=== PATIENT | female | born 1950 ===

== ENCOUNTER 2021-09-06 16:20 | Inpatient (IN) | payer MEDICARE, BC ==
[~2021-09-06] VITALS: Ht 160 cm; Wt 51.3 kg
--- NOTE | 2021-09-06 16:30 | NUR ---
Pt triaged and is waiting in the hallway in the private ambulance [facility] because there are no ER beds available at this time.
[2021-09-06] MEDS ORDERED: DIVA500T4 PO (16:36)
[2021-09-06] MEDS ORDERED: ATOR20TA PO (16:36)
[2021-09-06] MEDS ORDERED: THIA100T13 PO (16:36)
[2021-09-06] MEDS ORDERED: LACO200T2 PO (16:36)
[2021-09-06] MEDS ORDERED: FOLI1TAB94 PO (16:36)
[2021-09-06] MEDS ORDERED: QUET100T PO (16:36)
--- NOTE | 2021-09-06 17:00 | NUR ---
Pt was seen by . Pt remains in the hallway in the EMT gurney as there are still no ER beds available and no extra gurney to transfer pt into.
--- NOTE | 2021-09-06 17:40 | NUR ---
stated pt is medically clear, SBAR report given to [facility] via telephone.
--- NOTE | 2021-09-06 17:55 | NUR ---
Gps/Foreign Languages Department Chair- Received report from Christine SULTANA RN.
--- NOTE | 2021-09-06 17:55 | NUR ---
Pt trans to [facility] by EMT's in their own gurney.
--- NOTE | 2021-09-06 18:05 | NUR ---
Gps/Tin Can Laborer- Received patient via troy , alert, in no sign of any distress, noted word finding difficulty, left side weakness. . Patient wants to eat dinner at this time, brought foods from ER. Will attempt to get information as soon as she's done with her dinner.
[2021-09-06] MEDS ORDERED: ACETAMINOPHEN 325 MG TABLET PO PRN (19:15)
[2021-09-06] MEDS ORDERED: MAGNESIUM HYDROXIDE 30 ML LIQUID UDC PO PRN (19:15)
[2021-09-06] MEDS ORDERED: MAG HYDROX/AL HYDROX/SIMETH 30 ML LIQUID UDC PO PRN (19:15)
[2021-09-06 19:57] VITALS: BP 135/81
[2021-09-06] MEDS: ZOLPIDEM 5 MG TABLET PO PRN (20:41)
[2021-09-06] MEDS ORDERED: QUETIAPINE FUMARATE 100 MG TABLET PO SCH (21:00)
[2021-09-06] MEDS: LACOSAMIDE 50 MG TABLET PO SCH (21:16)
[2021-09-06] MEDS: ATORVASTATIN 20 MG TABLET PO SCH (21:16)
[2021-09-06] MEDS: DIVALPROEX ER 500 MG TAB.SR.24H PO SCH (21:16)
[2021-09-06] MEDS: LORAZEPAM 1 MG TABLET PO PRN (23:07)
--- NOTE | 2021-09-06 23:15 | NUR ---
GPS: Admitted to unit earlier a 71 yr.old female under the care of /Dr. Mccoy in fair condition. Pt.is on a 72 hour hold for DTS/GD. Pt.is AOx3 but forgetful at times. Has expressive aphasia,seizure disorder,Htn,and Hx of ICP. Personal belongings list/body check done by previous nurse. Pt's advisement/pt's rights handbook given. Pt.is cooperative during admission process. Denies wanting to harm self. Seizure precautions initiated. Unit rules explained. Safe environment provided. Will continue to monitor.
--- NOTE | 2021-09-07 06:08 | NUR ---
GPS: Pt.slept 6.45 and currently is still asleep during rounds. Safe environment provided. Will continue to monitor.
[2021-09-07 07:30] VITALS: BP 96/57
[2021-09-07] MEDS: THIAMINE HCL 100 MG TABLET PO SCH (08:31)
[2021-09-07] MEDS: FOLIC ACID 1 MG TABLET PO SCH (08:31)
[2021-09-07] MEDS: DIVALPROEX ER 500 MG TAB.SR.24H PO SCH ×2 (08:31→20:28)
[2021-09-07] MEDS: VENLAFAXINE XR 37.5 MG CAP.SR.24H PO SCH (10:45)
--- NOTE | 2021-09-07 10:53 | NUR ---
Clinical Social Work Note SW contacted and left patient's son Rk Rodgers [phone] a voicemail, to discuss treatment planning.
--- NOTE | 2021-09-07 10:55 | NUR ---
Firearms Report: Fabrics And Material Cutter completed and submitted a [employer] firearms report for 5150 grave disability certifications. A copy of report has been placed in patient chart.
--- NOTE | 2021-09-07 11:13 | NUR ---
Initial Discharge Plan Patient currently resides at home with her son at [address] [facility], [place], [address]. Patient stated that she would like to return to the care of her son. SW will contact son to ensure proper discharge plan. SW will continue to work with patient, family, and MD to ensure a safe and proper discharge plan.
[2021-09-07] MEDS: LACOSAMIDE 50 MG TABLET PO SCH ×2 (11:37→20:28)
[2021-09-07 16:41] VITALS: BP 102/60
--- NOTE | 2021-09-07 17:17 | NUR ---
Gps/Pumper Gauger- Tried to get hold of his son Vern, unable, left message .Had been in and out of the activity room, cooperative, min. interactions with her roommate
[2021-09-07 20:00] VITALS: BP 122/69
[2021-09-07] MEDS: QUETIAPINE FUMARATE 100 MG TABLET PO SCH (20:28)
[2021-09-07] MEDS: ATORVASTATIN 20 MG TABLET PO SCH (20:28)
[2021-09-07] MEDS: LORAZEPAM 1 MG TABLET PO PRN (21:41)
--- NOTE | 2021-09-08 06:45 | NUR ---
GPS: Pt.slept 8.15 last night. Denies SI. Re-assured prn. Safe environment/seizure precautions observed. Will continue to monitor.
[2021-09-08 08:24] VITALS: BP 104/70
[2021-09-08 08:31] LABS: CREATININE 0.6 mg/dL (0.6-1.3); POTASSIUM 4.5 mmol/L (3.5-5.1)
[2021-09-08] MEDS: DIVALPROEX ER 500 MG TAB.SR.24H PO SCH ×2 (09:05→20:09)
[2021-09-08] MEDS: FOLIC ACID 1 MG TABLET PO SCH (09:05)
[2021-09-08] MEDS: LACOSAMIDE 50 MG TABLET PO SCH ×2 (09:05→20:09)
[2021-09-08] MEDS: THIAMINE HCL 100 MG TABLET PO SCH (09:05)
[2021-09-08] MEDS: VENLAFAXINE XR 37.5 MG CAP.SR.24H PO SCH (09:06)
--- NOTE | 2021-09-08 13:23 | NUR ---
GPS: Nursing Notes: Destructive Behavior to Self: Patient is awake and responding to her name, isolative and withdrawn in her room, depressed mood and anxious affect, low energy level, unkempt appearance, compliant with her medications, eating well, but refusing to participate in therapeutic groups, laying down on her bed with her head cover with the blanket, verbally ousmane for safety, denies SI/HI, unable to formulate a viable plan for self care, continue to monitor for safety, continue with treatment plan.
[2021-09-08 16:44] VITALS: BP 106/62
[2021-09-08 20:00] VITALS: BP 104/64
[2021-09-08] MEDS: QUETIAPINE FUMARATE 100 MG TABLET PO SCH (20:09)
[2021-09-08] MEDS: ATORVASTATIN 20 MG TABLET PO SCH (20:09)
[2021-09-08] MEDS: ZOLPIDEM 5 MG TABLET PO PRN (22:47)
--- NOTE | 2021-09-09 02:38 | NUR ---
Received patient in her bed at the start of the shift. Patient was encouraged to come to the day room for a snack and to watch some TV. The patient complied and stayed out of her room for over a hour. This automobile service writer had difficulty communicating with the patient d/t the patients expressive aphasia. The patient seems to understand simple concepts but struggles to get her point across at times. This automobile service writer sent patient for a CT scan that was ordered, and assisted her to her room afterwords. Safety stratiges are in place, continuing with plan of care.
[2021-09-09 07:30] VITALS: BP 119/64
[2021-09-09] MEDS: THIAMINE HCL 100 MG TABLET PO SCH (09:49)
[2021-09-09] MEDS: LACOSAMIDE 50 MG TABLET PO SCH ×2 (09:49→21:49)
[2021-09-09] MEDS: VENLAFAXINE XR 37.5 MG CAP.SR.24H PO SCH (09:49)
[2021-09-09] MEDS: FOLIC ACID 1 MG TABLET PO SCH (09:49)
[2021-09-09] MEDS: DIVALPROEX ER 500 MG TAB.SR.24H PO SCH ×2 (09:49→21:50)
[2021-09-09 15:56] VITALS: BP 98/57
--- NOTE | 2021-09-09 17:45 | NUR ---
GPS: Nursing Notes: Destructive Behavior to Self: Patient is awake and responding to her name, isolative and withdrawn in her room, depressed mood and anxious affect, unkempt appearance, low energy level, forgetful, refusing to participate in therapeutic groups, laying down on her bed with her head cover with a blanket, stated "Leave alone.. I want to sleep..", unable to formulate a viable plan for self care, continue to monitor for safety, continue with treatment plan.
[2021-09-09 20:08] VITALS: BP 104/59
[2021-09-09] MEDS: QUETIAPINE FUMARATE 100 MG TABLET PO SCH (21:50)
[2021-09-09] MEDS: ATORVASTATIN 20 MG TABLET PO SCH (21:50)
[2021-09-09] MEDS: ZOLPIDEM 5 MG TABLET PO PRN (21:50)
[2021-09-09] MEDS: LORAZEPAM 1 MG TABLET PO PRN (22:52)
--- NOTE | 2021-09-10 06:22 | NUR ---
Received Pt in her room awake and reading a magazine. Pt was friendly on approach, but became guarded when the subject of her hospitalization came up, then she stated, "Let's talk about something else" and changed the subject. Pt gave no disclosure regarding the details of her admission. Pt was willing to engage in superficial conversation, and exhibited a bright affect. Pt denies any current suicidal thoughts, plans, or intent and verbally contracts for safety. Ativan administered for anxiety with good effect. Denied pain, VS stable.
[2021-09-10 08:16] VITALS: BP 98/58
[2021-09-10] MEDS: DIVALPROEX ER 500 MG TAB.SR.24H PO SCH ×2 (08:21→20:02)
[2021-09-10] MEDS: FOLIC ACID 1 MG TABLET PO SCH (08:21)
[2021-09-10] MEDS: THIAMINE HCL 100 MG TABLET PO SCH (08:21)
[2021-09-10] MEDS: VENLAFAXINE XR 37.5 MG CAP.SR.24H PO SCH (08:21)
[2021-09-10] MEDS: LACOSAMIDE 50 MG TABLET PO SCH ×2 (08:22→20:03)
--- NOTE | 2021-09-10 12:22 | NUR ---
GPS: Nursing Notes: Courtesy Call for Neurology Consultation: Per Dr. Gallegos request, called Dr. Neal for neurology consultation, Dr. Neal would see the patient today or tomorrow, continue to monitor for safety, continue with treatment plan.
[2021-09-10 16:21] VITALS: BP 104/59
[2021-09-10 19:59] VITALS: BP 111/54
[2021-09-10] MEDS: QUETIAPINE FUMARATE 100 MG TABLET PO SCH (20:02)
[2021-09-10] MEDS: ATORVASTATIN 20 MG TABLET PO SCH (20:03)
[2021-09-10] MEDS: ZOLPIDEM 5 MG TABLET PO PRN (21:51)
--- NOTE | 2021-09-11 07:13 | NUR ---
GPS: Pt.slept for 7 hrs last night. No new behavioral problems exhibited. Seizure precautions observed. Denies SI. Will continue to monitor.
[2021-09-11 07:30] VITALS: BP 110/64
[2021-09-11] MEDS: FOLIC ACID 1 MG TABLET PO SCH (08:22)
[2021-09-11] MEDS: THIAMINE HCL 100 MG TABLET PO SCH (08:22)
[2021-09-11] MEDS: VENLAFAXINE XR 37.5 MG CAP.SR.24H PO SCH (08:22)
[2021-09-11] MEDS: DIVALPROEX ER 500 MG TAB.SR.24H PO SCH ×2 (08:22→20:09)
[2021-09-11] MEDS: LACOSAMIDE 50 MG TABLET PO SCH ×2 (08:22→20:10)
--- NOTE | 2021-09-11 12:11 | NUR ---
[facility] Hearing: Patient had 5250 probable cause hearing today and it was upheld for grave disability.
--- NOTE | 2021-09-11 12:18 | NUR ---
GPS: Nursing Notes: Destructive Behavior to Self: Patient is awake and responding to her name, isolative and withdrawn in her room, refusing to participate in therapeutic groups, laying down on her bed, depressed mood and blunted affect, when she gets anxious, patient unable to speak clear, rambling speech, unable to formulate a viable plan for self care, continue to monitor for safety, continue with treatment plan.
[2021-09-11 16:15] VITALS: BP 101/60
[2021-09-11] MEDS: ASPIRIN EC 81 MG TABLET.DR PO SCH (16:41)
[2021-09-11] MEDS: QUETIAPINE FUMARATE 100 MG TABLET PO SCH (20:09)
[2021-09-11] MEDS: ATORVASTATIN 20 MG TABLET PO SCH (20:09)
[2021-09-11] MEDS: ZOLPIDEM 5 MG TABLET PO PRN (22:08)
[2021-09-11 23:04] VITALS: BP 111/71
[2021-09-12 07:30] VITALS: BP 118/67
[2021-09-12] MEDS ORDERED: ASPIRIN EC 81 MG TABLET.DR PO SCH (09:00)
[2021-09-12] MEDS: LACOSAMIDE 50 MG TABLET PO SCH ×2 (09:00→20:21)
[2021-09-12] MEDS: VENLAFAXINE XR 37.5 MG CAP.SR.24H PO SCH (09:00)
[2021-09-12] MEDS: DIVALPROEX ER 500 MG TAB.SR.24H PO SCH ×2 (09:00→20:21)
[2021-09-12] MEDS: FOLIC ACID 1 MG TABLET PO SCH (09:00)
[2021-09-12] MEDS: THIAMINE HCL 100 MG TABLET PO SCH (09:01)
[2021-09-12] MEDS: ASPIRIN EC 81 MG TABLET.DR PO SCH (09:01)
--- NOTE | 2021-09-12 10:16 | NUR ---
SW Family Contact: SW left a voicemail for patient's son Vern ([phone]) and informed of discharge plan for Friday and to call this SW back with a scrap picker time.
[2021-09-12 16:00] VITALS: BP 121/77
[2021-09-12 20:07] VITALS: BP 127/72
[2021-09-12] MEDS: QUETIAPINE FUMARATE 100 MG TABLET PO SCH (20:21)
[2021-09-12] MEDS: ATORVASTATIN 20 MG TABLET PO SCH (20:21)
[2021-09-12] MEDS: ZOLPIDEM 5 MG TABLET PO PRN (22:04)
--- NOTE | 2021-09-13 04:59 | NUR ---
Pt slept intermittently throughout the night with aid of sleeping Ambien. Denies SI or HI. Pt has rambling speech pattern but able to be redirected. No acute distress or agitation noted throughout the shift.
[2021-09-13 07:30] VITALS: BP 108/69
--- NOTE | 2021-09-13 08:06 | NUR ---
[facility] Family Contact: SW left a voicemail for patient's son Vern ([phone]) and requested call back to discuss discharge plan for Friday and confirm pick-up time.
[2021-09-13] MEDS: LACOSAMIDE 50 MG TABLET PO SCH ×2 (08:50→20:11)
[2021-09-13] MEDS: VENLAFAXINE XR 37.5 MG CAP.SR.24H PO SCH (08:51)
[2021-09-13] MEDS: ASPIRIN EC 81 MG TABLET.DR PO SCH (08:51)
[2021-09-13] MEDS: DIVALPROEX ER 500 MG TAB.SR.24H PO SCH ×2 (08:51→20:11)
[2021-09-13] MEDS: FOLIC ACID 1 MG TABLET PO SCH (08:51)
[2021-09-13] MEDS: THIAMINE HCL 100 MG TABLET PO SCH (08:51)
[2021-09-13 16:00] VITALS: BP 118/72
--- NOTE | 2021-09-13 18:31 | NUR ---
GPS: PT ALERT AND VERBALLY RESPONSIVE. DENIES PAIN OR DISCOMFORT. COOPERATIVE WITH CARE AND COMPLIANT WITH MEDICATIONS. PT INFORMED THAT SHE WILL BE DISCHARGED TOMORROW AND SON WILL PICK HER UP AROUND 11-12PM. PT EXCITED TO GO HOME. NO AGITATION NOTED. DENIES ANY SUICIDAL OR HOMICIDAL IDEATION. IN CONGRUENT AFFECT. ABLE TO MAKE NEEDS KNOWN.
[2021-09-13] MEDS: QUETIAPINE FUMARATE 100 MG TABLET PO SCH (20:09)
[2021-09-13] MEDS: ATORVASTATIN 20 MG TABLET PO SCH (20:09)
[2021-09-13] MEDS: ZOLPIDEM 5 MG TABLET PO PRN (20:11)
[2021-09-13 20:16] VITALS: BP 129/73
--- NOTE | 2021-09-13 20:36 | NUR ---
GPS: PT REQUESTED ZOLPIDEM FOR SLEEP. PER PT, SHE WANT TO HAVE A GOOD SLEEP BECAUSE SHE WILL BE DISCHARGE TOMORROW. COMPLIANT WITH MEDICATIONS. NO SUICIDAL OR HOMICIDAL IDEATION. NO AGITATION OR ANXIETY AT THIS TIME.
[2021-09-14 07:30] VITALS: BP 111/66
--- NOTE | 2021-09-14 07:56 | NUR ---
SW Discharge Note Patient will be discharged home [address] [place], [address] with her son Vern Rodgers ([phone]). Patients son will pickling solution maker patient between 11AM and 12PM. Patient presents alert and oriented x3 and is aware and agreeable with discharge plan. Patient denies suicidal or homicidal ideation. Pt presents with appropriate mood and congruent affect.
[2021-09-14] MEDS: ASPIRIN EC 81 MG TABLET.DR PO SCH (08:10)
[2021-09-14] MEDS: DIVALPROEX ER 500 MG TAB.SR.24H PO SCH (08:10)
[2021-09-14] MEDS: THIAMINE HCL 100 MG TABLET PO SCH (08:10)
[2021-09-14] MEDS: VENLAFAXINE XR 37.5 MG CAP.SR.24H PO SCH (08:11)
[2021-09-14] MEDS: LACOSAMIDE 50 MG TABLET PO SCH (08:11)
[2021-09-14] MEDS: FOLIC ACID 1 MG TABLET PO SCH (08:12)
--- NOTE | 2021-09-14 11:34 | NUR ---
PT LEFT DISCHARGED FROM UNIT ON W/C ACCOMPANIED BY POWER LINEMAN TECHNICIAN TO PT'S SON WHO IS WAITING IN HOSPITAL LOBBY. PT WILL LEAVE IN PRIVATE VEHICLE. PT IS CALM AND COMPLIANT. ABLE TO MAKE MOST NEEDS KNOWN. DENIES SUICIDAL AND HOMICIDAL IDEATIONS. LEFT WITH ALL NOTED BELONGINGS AND PAPERWORK. V/S STABLE. IN NO ACUTE DISTRESS.
== END 2021-09-14 11:37 | disposition home or self-care (01) | DRG 885 ==
LOC: ER 16:20 → GPS 17:58
PROVIDERS: ADMIT Psychiatry & Neurology Psychiatry; ATTEND Nurse Practitioner Acute Care
DX: F25.1 Schizoaffective disorder, depressive type (principal); F06.30 Mood disorder due to known physiological condition, unspecified; F03.91 Unspecified dementia, unspecified severity, with behavioral disturbance; I69.354 Hemiplegia and hemiparesis following cerebral infarction affecting left non-dominant side; R47.01 Aphasia; E78.5 Hyperlipidemia, unspecified; G40.909 Epilepsy, unspecified, not intractable, without status epilepticus; F10.11 Alcohol abuse, in remission; Z79.899 Other long term (current) drug therapy; I45.10 Unspecified right bundle-branch block; Z88.8 Allergy status to other drugs, medicaments and biological substances
CPT/HCPCS: 36415; 70450; 71045; 80164; 93005; A4663